=== PATIENT | female | born 1955 | race Two or more races ===

== ENCOUNTER 2016-11-12 00:02 | Emergency (ER) | payer SELFPAY ==
[~2016-11-12] VITALS: Ht 167.6 cm; Wt 72.6 kg
[2016-11-12] MEDS ORDERED: TRAMADOL HCL 50 MG TABLET ONE (00:18)
[2016-11-12] MEDS ORDERED: TRAMADOL HCL 50 MG TABLET PO ONE (00:30)
[2016-11-12 01:11] VITALS: BP 130/95
== END 2016-11-12 01:13 | disposition left against medical advice (07) ==
LOC: ER 00:04
DX: M79.604 Pain in right leg (principal); M25.561 Pain in right knee; M25.562 Pain in left knee; G43.909 Migraine, unspecified, not intractable, without status migrainosus; Z88.6 Allergy status to analgesic agent
CPT/HCPCS: 99281; A4606; Z7610; Z7502